=== PATIENT | male | born 2000 | race Two or more races ===

== ENCOUNTER 2023-06-13 19:14 | Emergency (ER) | payer SELFPAY ==
[~2023-06-13] VITALS: Ht 180.3 cm; Wt 104.9 kg
[2023-06-13] MEDS ORDERED: KETOROLAC 60MG/2ML VIAL IM ONE (19:45)
[2023-06-13] MEDS ORDERED: HYDROCODONE/ACETAMINOPHEN 5/325MG TABLET PO ONE (19:45)
[2023-06-13] MEDS ORDERED: LIDOCAINE 5% PATCH TOP SCH (19:45)
[2023-06-13] MEDS ORDERED: LIDO700A15 TP (22:28)
[2023-06-13] MEDS ORDERED: ACET-2708 MT (22:28)
[2023-06-13] MEDS ORDERED: IBUP-2028 MT (22:28)
[2023-06-13 22:57] VITALS: BP 128/75; PULSE 66; RESP 18; TEMP 97.5
== END 2023-06-13 22:59 | disposition home or self-care (01) ==
LOC: ER 19:14
DX: S22.059A Unspecified fracture of T5-T6 vertebra, initial encounter for closed fracture (principal); S22.069A Unspecified fracture of T7-T8 vertebra, initial encounter for closed fracture; W18.30XA Fall on same level, unspecified, initial encounter; Y93.89 Activity, other specified; Y92.89 Other specified places as the place of occurrence of the external cause; Y99.8 Other external cause status
CPT/HCPCS: 71250; 96372; 99285; J1885; Z7610 ×2